=== PATIENT | male | born 2000 | race Caucasian/White ===

== ENCOUNTER 2020-07-16 11:01 | Emergency (ER) | payer OTHER ==
[~2020-07-16] VITALS: Ht 200.7 cm; Wt 81.6 kg
[2020-07-16] MEDS ORDERED: DUI500 PO (13:00)
[2020-07-16] MEDS ORDERED: TUSNEL LIQUID178 ML PO (13:00)
== END 2020-07-16 13:08 | disposition home or self-care (01) ==
LOC: ER 11:01
DX: J35.01 Chronic tonsillitis (principal); Z11.52 Encounter for screening for COVID-19